=== PATIENT | female | born 1995 | race African-American/Black ===

== ENCOUNTER 2025-03-08 17:00 | Emergency (ER) | payer OTHER ==
[~2025-03-08] VITALS: Ht 170.2 cm; Wt 107.0 kg
[2025-03-08] MEDS ORDERED: LEXA1TAB PO (17:10)
[2025-03-08] MEDS: NS (Normal Saline) 0.9% 1,000 ML IV ONE (20:47)
[2025-03-08] MEDS: ACETAMINOPHEN *IV* 1,000 MG in IV 1 EA IV ONE (20:47)
[2025-03-08] MEDS: ONDANSETRON 4MG/2ML VIAL IV ONE (20:47)
[2025-03-08 21:03] LABS: PLATELET COUNT, AUTOMATED 336 10^3/uL (150-450)
[2025-03-08 21:33] LABS: ALT/SGPT 221 U/L (7.0-40); AST/SGOT 194 U/L (<34); CALCIUM LEVEL 9.5 MG/DL (8.5-10.1); CARBON DIOXIDE LEVEL 28 MMOL/L (20-31); CHLORIDE LEVEL 105 MMOL/L (98-107); CREATININE FOR GFR 0.58 MG/DL (0.55-1.30); GLOMERULAR FILTRATION RATE > 90.0 (>60); POTASSIUM SERUM 3.7 MMOL/L (3.5-5.1); SODIUM LEVEL 143 MMOL/L (136-145)
[2025-03-08 21:37] LABS: ATYPICAL LYMPH 15 % (0-5); LYMPHOCYTES 51 % (16-44); MONOCYTES 7 % (0-5); NEUTROPHILS 27 % (28-66)
[2025-03-08 21:38] LABS: HCG, SERUM QUALITATIVE NEGATIVE (NEGATIVE); PLATELET ESTIMATE NORMAL (NORMAL)
[2025-03-08] MEDS ORDERED: ISOVUE-370 76% 100 ML VIAL As Ordered ONE (21:56)
[2025-03-08 22:41] VITALS: BP 123/78; TEMP 98; O2SAT 98
== END 2025-03-08 23:20 | disposition home or self-care (01) ==
LOC: M ED 18:37
DX: R74.01 Elevation of levels of liver transaminase levels (principal); R19.7 Diarrhea, unspecified; F41.9 Anxiety disorder, unspecified; F32.A Depression, unspecified; F84.0 Autistic disorder; F90.9 Attention-deficit hyperactivity disorder, unspecified type; K76.0 Fatty (change of) liver, not elsewhere classified
CPT/HCPCS: 74177; 80048; 80076; 83690; 84703; 85025; 93041; 96365; 96366; 96375; 99284; J0134; J2405; Q9967